=== PATIENT | male | born 1965 | race African-American/Black ===

== ENCOUNTER 2020-08-23 00:14 | Day surgery (SDC) | payer BC, SELFPAY ==
[2020-08-07 10:06] VITALS: BMI 35.9
[2020-08-23 06:16] VITALS: BP 135/85; PULSE 70; RESP 16; TEMP 35.8; O2SAT 98; BMI 35.2
[2020-08-23] MEDS: LACTATED RINGERS 1,000 ML 150 ML IV CONT (06:27)
[2020-08-23 06:29] LABS: Glucose Point of Care 103 mg/dl (65-105)
--- NOTE | 2020-08-23 06:42 | WPDANESEPPF ---
Anes - Initial Pre Proc Eval Procedure: Operation Date: 08/23/20 07:30 Proposed Procedures p Screening Colonoscopy - Greg Mosher MD Date/Time: 08/23/20 06:42 Surgeon: Greg Mosher MD Pre Op Diagnosis: neoplasm screening Patient Data Age: 54 Gender: M Height: 1.73 m Weight: 104.9 kg Last Vital Signs Temp 35.8 C L 08/23/20 06:16 Pulse 70 08/23/20 06:16 Resp 16 08/23/20 06:16 BP 135/85 08/23/20 06:16 Pulse Ox 98 08/23/20 06:16 Allergies Allergy/AdvReac Type Severity Reaction Status Date / Time No Known Allergies Allergy Verified 08/23/20 06:13 Home Medications Medication Instructions Recorded Confirmed Type metformin 500 mg tablet,extended 500 mg PO DAILY #90 tablet 12/29/19 08/07/20 Rx release 24 hr allopurinol 300 mg tablet 300 mg PO DAILY #90 tablet 02/19/20 08/07/20 Rx rosuvastatin 5 mg tablet 5 mg PO DAILY #90 tablet 02/19/20 08/07/20 Rx Laboratory Tests 08/23/20 06:21 POC Capillary Glucose 103 mg/dl mg/dl (65-105) Patient hx anesthesia problems: none Family hx anesthesia problems: none PMFSH Past Medical History Medical History Gout, unspecified Hx of atrial fibrillation, no current medication 2008 Obesity (BMI 30.0-34.9) Prediabetes Pure hypercholesterolemia, unspecified Surgical History Surgical History H/O removal of cyst 2013 Family History Family History Father Diabetes mellitus Depression Grandparent Diabetes mellitus Carcinoma of colon Mother Hypertension Family history of elevated blood lipids Family history of cardiovascular disease Family history of lung cancer Social History Social History Alcohol intake: current Drinks per week: 3 Living arrangements: with family Gender identity (if verbalized by the patient): Male Spiritual care concerns: No Anes - Eval Final PreProcedure Day of Procedure 08/23/20 06:42 Patient weight: obese Heart: regular rate and rhythm Lungs: clear to auscultation Airway: Mallampati scale class III Neurological: alert and oriented Last oral intake: >/= 8 hours ASA classification: III Emergent: no Anesthetic plan: proceed Anesthesia type and monitoring: general GIVS and standard monitoring Informed Consent: The patient's anesthetic plan and its attendant risks and benefits were discussed with the patient/family/POA. Questions were solicited and answers provided to the satisfaction of the patient/family/POA.
--- NOTE | 2020-08-23 07:32 | WPDGICN ---
Assessment and Plan Assessment and plan (1) Colon cancer screening: Code(s): Z12.11 - Encounter for screening for malignant neoplasm of colon Status: Acute Assessment and Plan: Patient presents for screening colonoscopy. Because of age. Further recommendations will be given after endoscopy. GI Consult Note Consult date/time: 08/23/20 07:33 HPI: Valentino Okeefe is a 54 year old male Presents for screening colonoscopy. Patient reports that his current weight appetite bowel movements are normal. Patient denies abdominal pain. He has had no bleeding. Family history noncontributory. Review of Systems Review of Systems: All systems reviewed & are unremarkable except as noted in HPI and below PMFSH Past Medical History Medical History Gout, unspecified Hx of atrial fibrillation, no current medication 2008 Obesity (BMI 30.0-34.9) Prediabetes Pure hypercholesterolemia, unspecified Surgical History Surgical History H/O removal of cyst 2013 Family History Family History Father Diabetes mellitus Depression Grandparent Diabetes mellitus Carcinoma of colon Mother Hypertension Family history of elevated blood lipids Family history of cardiovascular disease Family history of lung cancer Social History Social History Alcohol intake: current Drinks per week: 3 Living arrangements: with family Gender identity (if verbalized by the patient): Male Spiritual care concerns: No Meds Home Medications and Allergies Home Medications Medication Instructions Recorded Confirmed Type metformin 500 mg tablet,extended 500 mg PO DAILY #90 tablet 12/29/19 08/07/20 Rx release 24 hr allopurinol 300 mg tablet 300 mg PO DAILY #90 tablet 02/19/20 08/07/20 Rx rosuvastatin 5 mg tablet 5 mg PO DAILY #90 tablet 02/19/20 08/07/20 Rx Allergies Allergy/AdvReac Type Severity Reaction Status Date / Time No Known Allergies Allergy Verified 08/23/20 06:13 Vital Signs Vital Signs - 24 hr 08/23/20 06:16 Temperature 96.4 F L Pulse Rate 70 Respiratory Rate 16 Blood Pressure 135/85 Pulse Oximetry 98 Exam Narrative: Exam Narrative: Physical exam reveals patient to be alert. Vital signs stable. HEENT exam is unremarkable. Lungs are clear to auscultation and percussion. Heart is without murmur or extra sounds. Abdominal exam bowel sounds are present soft nontender with no hepatosplenomegaly. Digital external rectal exam is normal.
[2020-08-23 07:54] VITALS: BP 107/72; PULSE 72; RESP 17; O2SAT 99
[2020-08-23 08:04] VITALS: BP 120/71; PULSE 75; RESP 17; O2SAT 99
[2020-08-23 08:10] LABS: Glucose Point of Care 94 mg/dl (65-105)
[2020-08-23 08:14] VITALS: BP 121/72; PULSE 78; RESP 17; O2SAT 99
== END 2020-08-23 08:24 | disposition home or self-care (01) ==
PROVIDERS: PCP Family Medicine; Visit Provider Internal Medicine Gastroenterology
PROC: 0DJD8ZZ Inspection of Lower Intestinal Tract, Via Natural or Artificial Opening Endoscopic (ICD-10-PCS; CPT 45378; principal; 2020-08-23 07:30)
DX: Z12.11 Encounter for screening for malignant neoplasm of colon (principal); M10.9 Gout, unspecified; R73.03 Prediabetes; E78.00 Pure hypercholesterolemia, unspecified; E66.9 Obesity, unspecified; Z86.79 Personal history of other diseases of the circulatory system
CPT/HCPCS: 45378; 82948; J2704; J7120

== ENCOUNTER 2024-07-08 11:28 | Emergency (ER) | payer BC, SELFPAY ==
[2024-07-08 11:59] VITALS: BP 145/81; PULSE 70; RESP 16; TEMP 36.2; O2SAT 99
--- NOTE | 2024-07-08 12:01 | ED_ITS ---
HPI - Back Pain/Injury General Chief Complaint: Back Pain/Injury Stated Complaint: BACK INJURY Time Seen by Provider: 07/08/24 12:01 Source: patient, RN notes reviewed and old records reviewed Mode of arrival: ambulatory Limitations: no limitations History of Present Illness HPI Narrative: 58-year-old male presents to the [facility] with 2 week history of low back pain. Has been taking [id number] predicated otero as well as using topicals. Patient states 2 weeks ago he was spilling a post that was concrete id but used to have a mailbox attached. Denies any midline tenderness. Denies any direct trauma. Denies any loss retention of bowel or bladder. Occasionally having pain radiating down the left leg. Denies abdominal pain, chest pain, shortness of breath Related Data Allergies Allergy/AdvReac Type Severity Reaction Status Date / Time No Known Allergies Allergy Verified 07/08/24 11:58 Review of Systems Review of Systems: All systems reviewed & are unremarkable except as noted in HPI and below Constitutional: Constitutional: Reports no additional constitutional complaints ENT: Reports system reviewed and no additional complaints, except as documented Cardiovascular: Cardiovascular: Reports no additional cardiovascular complaints, Denies chest pain and Denies dyspnea Respiratory: Respiratory: Reports no additional respiratory complaints, Denies chest congestion, Denies cough and Denies dyspnea Musculoskeletal: Musculoskeletal: Reports as per HPI and Reports back pain Integumentary/Breasts: Skin/Breast: Reports system reviewed and no additional complaints, except as docu PMFSH Past Medical History Medical History Family hx of prostate cancer Hx of atrial fibrillation, no current medication 2008 Obesity (BMI 30.0-34.9) Gout, unspecified Prediabetes Pure hypercholesterolemia, unspecified Surgical History Surgical History H/O removal of cyst 2013 Family History Family History Father Diabetes mellitus Depression Grandparent Diabetes mellitus Carcinoma of colon Mother Hypertension Family history of elevated blood lipids Family history of cardiovascular disease Family history of lung cancer Social History Social History Smoking status: Never smoker Alcohol intake: current Drinks per week: 3 Living arrangements: with family Gender identity (if verbalized by the patient): Male Sexual Orientation (if Verbalized by the Patient): Straight or Heterosexual Spiritual care concerns: No Comments At the time of my signature, I reviewed and agree with the nursing past medical, surgical, social, and family history. There is no relevant family history pertinent to the patient complaint. Exam Const: General: cooperative, healthy appearing, comfortable, no acute distress, well developed, alert and well nourished Nutritional Appearance: well nourished Orientation/consciousness: patient oriented x3 Limitations: no limitations HENMT: Head: normal to inspection Eyes: General: appearance normal, both eyes and all related structures Alignment and Position: alignment normal Neck: Neck: normal visual inspection, full ROM, no lymphadenopathy and no meningeal signs Chest: Chest palpation & inspection: normal inspection of the chest Resp: Effort & Inspection: normal respiratory effort and able to speak in complete sentences Auscultation: clear to auscultation bilaterally, no crackles, no rales, no rhonchi and no wheezes Cardio: Rate: regular rate GI: GI Palp: No abdominal tenderness Back/Spine/Pelvis: Back: back tenderness ( lumbar ) Cervical Spine: normal cervical lordosis, cervical ROM normal, No cervical muscular tenderness and No Cervical spine tenderness Thoracic/Lumbar Spine: paraspinal muscle tenderness bilaterally in the mid lumbar and in the lower lumbar, No thoracic spinal tenderness and No lumbar spinal tenderness Pelvis: no pain with anterior- posterior compression and no pain with lateral compression Sacrum: no ecchymosis Skin: General skin exam: normal color and no rashes or lesions noted Neuro: General: patient oriented x3, gait normal, moves all extremities and no meningeal signs Cognition (Neuro): normal cognition Speech: normal speech Gait exam (Neuro): Normal gait present Extrem: General: normal to inspection, full ROM, capillary refill normal and normal gait Psych: Appearance: grossly normal and well kempt Mental Status: mental status grossly normal Speech and movement: Normal speech and movement present and Clear speech present Affect: normal affect Attitude: cooperative Course Course Level of Care: Express Care Visit Vital Signs Vital signs: Vital Signs Temperature 97.1 F L 07/08/24 11:59 Pulse Rate 70 07/08/24 11:59 Respiratory Rate 16 07/08/24 11:59 Blood Pressure 145/81 H 07/08/24 11:59 Pulse Oximetry 99 07/08/24 11:59 Temperature 97.1 F L 07/08/24 11:59 Pulse Rate 70 07/08/24 11:59 Respiratory Rate 16 07/08/24 11:59 Blood Pressure 145/81 H 07/08/24 11:59 Pulse Oximetry 99 07/08/24 11:59 Reviewed MDM - Back Pain/Injury MDM Narrative Medical decision making narrative: patient presents with 2 week history low back pain. Has tried multiple [id number] products, topicals with no relief. Patient is nontoxic, vitals are stable. Patient with no red flag symptoms. No trauma, does not need an x-ray at this time. Patient appropriate for outpatient treatment with jmoh-sjf-smchews products as well as a muscle relaxer. Discharge instructions reviewed with patient, as well as provided in writing per nursing staff. The instructions also include specific and strict return/GO TO THE ER as well as f/u information. All questions have been answered, and the patient deny any further questions with discharge and discharge plan. Some parts of this dictation were generated by voice recognition software and may contain typographical and/or grammatical inaccuracies. Differential Diagnosis Differential diagnosis: Likely lumbar radiculopathy, sciatica, strain of lumbar region, pyelonephritis and thoracic back pain Critical Care Time Critical Care Time Critical Care Time: No Discharge Plan Discharge Clinical Impression: Strain of lumbar region Qualifiers: Encounter type: initial encounter Qualified Code(s): S39.012A - Strain of muscle, fascia and tendon of lower back, initial encounter Patient Disposition: Home Condition: Stable Instructions: Antibiotic Form, Acute Low Back Pain (ED), Lower Back Exercises (ED) Additional Instructions: Take ibuprofen as directed to decrease inflammation and to help pain. Take Baclofen (muscle relaxer) as directed. Do not drink, drive, operate machinery, or do anything dangerous while taking this medication Exercise:Combine aerobic exercise, like walking or swimming, with specific exercises to keep the muscles in your back and abdomen strong and flexible. Proper Lifting:Be sure to lift heavy items with your legs, not your back. Do not bend over to pick something up. Keep your back straight and bend at your knees. Weight:Maintain a healthy weight. Being overweight puts added stress on your lower back. Avoid Smoking:Both the smoke and the nicotine cause your spine to age faster than normal. Proper Posture:Good posture is important for avoiding future problems. A therapist can teach you how to safely stand, sit, and lift. Use warm moist heat to help with pain. Using topical such as Biofreeze, Rogelio-Amaya or Aspercreme can also help Follow up with Primary provider in 2-3 days, This may become a chronic condition and they will be the one to help manage your pain and order additional testing. Go to the nearest ER if you develop problems with bladder/bowel function, weakness or loss of feeling in one or both of your legs. Patient Language: Romanian Prescriptions: New baclofen 10 mg tablet 10 mg PO TID PRN (Reason: muscle pain) Qty: 15 0RF ibuprofen 600 mg tablet 600 mg PO TID PRN (Reason: fever or pain) Qty: 30 0RF lidocaine [Lidoderm] 5 % adhesive patch,medicated 1 patch topical DAILY Qty: 15 0RF Rx Instructions: leave on most painful area for up to 12 hrs No Action allopurinol 300 mg tablet 300 mg PO DAILY Qty: 90 3RF metformin 500 mg tablet extended release 24 hr 500 mg PO DAILY Qty: 90 3RF Rx Instructions: ac with largest meal rosuvastatin 5 mg tablet 5 mg PO DAILY Qty: 90 3RF Follow-up/Referrals: Ezequiel Richardson MD [Primary Care Provider] - 2 Weeks ([facility] follow- up) Time of Disposition: 12:31
== END 2024-07-08 12:39 | disposition home or self-care (01) ==
PROVIDERS: Emergency Provider Nurse Practitioner; PCP Family Medicine
DX: S39.012A Strain of muscle, fascia and tendon of lower back, initial encounter (principal); I48.91 Unspecified atrial fibrillation; X58.XXXA Exposure to other specified factors, initial encounter
CPT/HCPCS: 99213; G0463